=== PATIENT | male | born 1950 | race Caucasian/White ===

== ENCOUNTER → 2024-05-28 13:27 | Outpatient (REF) | payer MEDICARE, SELFPAY | LOC: HWRAD 13:27 | PROVIDERS: ATTENDING PHYSICIAN Podiatrist Foot & Ankle Surgery; FAMILY PHYSICIAN Internal Medicine | DX: M20.42 Other hammer toe(s) (acquired), left foot (principal) | CPT/HCPCS: 73630 ==

== ENCOUNTER → 2024-12-06 14:10 | Outpatient (REF) | payer MEDICARE, SELFPAY | LOC: HWRAD 14:10 | PROVIDERS: ATTENDING PHYSICIAN Podiatrist Foot & Ankle Surgery; FAMILY PHYSICIAN Internal Medicine | DX: M20.42 Other hammer toe(s) (acquired), left foot (principal); Z01.811 Encounter for preprocedural respiratory examination | CPT/HCPCS: 71046; 73630 ==

== ENCOUNTER → 2025-01-07 13:54 | Outpatient (REF) | payer MEDICARE, SELFPAY | LOC: HWRAD 13:54 | PROVIDERS: ATTENDING PHYSICIAN Podiatrist Foot & Ankle Surgery; FAMILY PHYSICIAN Internal Medicine | DX: Z98.1 Arthrodesis status (principal) | CPT/HCPCS: 73630 ==

== ENCOUNTER → 2025-02-02 13:06 | Outpatient (REF) | payer MEDICARE, SELFPAY | LOC: HWRAD 13:06 | PROVIDERS: ATTENDING PHYSICIAN Podiatrist Foot & Ankle Surgery; FAMILY PHYSICIAN Internal Medicine | DX: Z98.1 Arthrodesis status (principal) | CPT/HCPCS: 73630 ==